=== PATIENT | female | born 1945 | race Caucasian/White ===

== ENCOUNTER 2017-10-07 16:04 | Emergency (ER) | payer MEDICARE, OTHER ==
[2017-10-07] MEDS ORDERED: MORPHINE SULFATE 10 MG/ML SOL IV ONE ×3 (16:09→17:30)
[2017-10-07] MEDS ORDERED: MORPHINE SULFATE 10 MG/ML SOL ONE ×2 (16:10→16:59)
[2017-10-07 16:20] VITALS: RESP 20; TEMP 97.6
[2017-10-07] MEDS ORDERED: CEFAZOLIN SODIUM 1 GM PDS ONE ×2 (16:26→17:05)
[2017-10-07] MEDS ORDERED: CEFAZOLIN (PREMIX) 1 GM SOL IV SCH (16:30)
[2017-10-07] MEDS ORDERED: CEFAZOLIN SODIUM 1 GM PDS 2 GM in SODIUM CHLORIDE 0.9% 100 ML 100 ML IV ONE (17:04)
[2017-10-07 17:08] LABS: CREATININE 0.97 mg/dl (0.60-1.00); POTASSIUM 4.3 mMol/L (3.5-5.1)
[2017-10-07 17:11] LABS: BASOPHILS % (AUTO) 2 % (0-3); EOSINOPHILS % (AUTO) 1 % (0-9); HEMATOCRIT 40 % (35-47); HEMOGLOBIN 14.4 gm/dl (12.0-15.5); LYMPHOCYTES % (AUTO) 28.3 % (10-50); MEAN CORPUSCULAR HEMOGLOBIN 34.7 pg (27.0-32.0); MEAN CORPUSCULAR HGB CONC 36.5 gm/dl (32.0-36.0); MEAN CORPUSCULAR VOLUME 95 fL (81-99); MONOCYTES % (AUTO) 10.4 % (0-12); NEUTROPHILS % (AUTO) 58.6 % (37-80)
[2017-10-07] MEDS ORDERED: ONDANSETRON HCL 4 MG/2 ML SOL ONE (17:28)
[2017-10-07 17:30] LABS: NORMAL RBCS PRESENT
[2017-10-07] MEDS ORDERED: ONDANSETRON HCL 4 MG/2 ML SOL IV ONE (17:30)
[2017-10-07 18:20] VITALS: BP 145/72; PULSE 76; O2SAT 96
== END 2017-10-07 17:32 | disposition short-term general hospital (02) | DRG 563 ==
LOC: ED 16:04
DX: S82.402B Unspecified fracture of shaft of left fibula, initial encounter for open fracture type I or II (principal); I10 Essential (primary) hypertension; R40.2142 Coma scale, eyes open, spontaneous, at arrival to emergency department; R40.2362 Coma scale, best motor response, obeys commands, at arrival to emergency department; R40.2252 Coma scale, best verbal response, oriented, at arrival to emergency department; W01.0XXA Fall on same level from slipping, tripping and stumbling without subsequent striking against object, initial encounter; Y92.511 Restaurant or cafe as the place of occurrence of the external cause; R00.0 Tachycardia, unspecified
CPT/HCPCS: 73600; 80048; 85025; 85610; 96365; 96374; 96375; 99285; 99291; J0690; J2270; J2405; A6232